=== PATIENT | female | born 1990 | race Caucasian/White ===

== ENCOUNTER → 2023-12-31 10:04 | Outpatient (REF) | payer OTHER, SELFPAY | LOC: HWRAD 10:04 | PROVIDERS: ATTENDING PHYSICIAN Obstetrics & Gynecology Gynecology; FAMILY PHYSICIAN Internal Medicine | DX: N93.0 Postcoital and contact bleeding (principal); R10.2 Pelvic and perineal pain | CPT/HCPCS: 76830; 76856 ==

== ENCOUNTER 2024-07-12 05:05 | Emergency (ER) | payer OTHER, SELFPAY ==
[2024-07-12 05:06] VITALS: BP 130/95
[2024-07-12 05:20] VITALS: BMI 30.9
--- NOTE | 2024-07-12 05:22 | ED.GENMED ---
History of Present Illness
General
Chief Complaint: Abdominal Pain
Source: patient and spouse
Exam Limitations: none
Time Seen by Provider: 07/12/24 05:18
Nursing documentation reviewed up to this point in time: agreed with
History of Present Illness
History of Present Illness:
This is a 34-year-old woman with no significant past medical history, takes no medicines on a daily basis save for vitamins. She presents with nausea, vomiting, diarrhea that began around 7 PM last night. Couple episodes of recurrent vomiting as
well as loose stools. She denies hematemesis, denies hematochezia. Her had similar GI symptoms yesterday.
She complains of generalized aches, myalgias.
She denies risk of .
No recent travel nor recent antibiotic use.
Past History
Past History
ED Past Medical History: None
ED Past Surgical History: Gynecological (Laparoscopic ovarian cyst removal) and Tonsilectomy
Social History
Tobacco: Non-smoker
Alcohol: Occasional
Drug: None
Personal:
Living: with family
Employment: Employed
Family History
Family History: Other (Noncontributory)
Phy Exam
Physical Exam
Physical Exam:
GENERAL: 34-year-old woman appears her stated age, awake and alert, appears in moderate distress, anxious, restless, holding emesis basin at the ready. is accompanying. Vital signs within normal limits. Afebrile.
EYE: pupils equal and reactive. anicteric
NECK: Supple, nontender, no meningismus, no significant adenopathy.
ENT: posterior pharynx is clear, oral mucosa is minimally dry. No rhinorrhea.
CARDIAC: Regular rate and rhythm. no murmur.
LUNGS: Clear breath sounds bilaterally, no acute respiratory distress, no wheezes/rales/rhonchi
ABDOMEN: Soft, nondistended, without focal tenderness, no r/g, no cvat. normoactive BS.
NEUROLOGICAL: Alert and oriented x3, no focal neuro deficits. Gait is steady.
SKIN: Warm and dry, normal color, skin intact. No rash.
MUSCULOSKELETAL: No C/C/E. peripheral pulses are full and equal b/l. No palpable tenderness.
PSYCH: Mildly anxious. Cooperative.
Course
Orders/Labs/Results
Orders:
Orders
07/12/24 05:21
0.9% Sodium Chloride 1000 ml [Nss] 1,000 ml IV BOLUS
Morphine Sulfate 4 mg IV NOW STA
Ondansetron Injectable [Zofran] 4 mg IV NOW STA
Test Result ONCE
07/12/24 05:22
Norovirus by PCR Urgent
[facility] Source: Feces/Stool
Specimen Description:
Stool Culture Urgent
[facility] Source: Feces/Stool
Specimen Description:
07/12/24 05:37
Complete Blood Count/With Diff Urgent
Comprehensive Metabolic Panel Urgent
HCG, Serum Qualitative Screen Urgent
Lipase Urgent
Abnormal Lab Results
07/12/24
05:37
MCH 31.7 H pg
(27.0-31.0)
Abs Immat Gran (auto) 0.1 H 10^3/uL
(0-0.05)
Absolute Neuts (auto) 9.9 H 10^3/uL
(1.4-6.5)
Absolute Lymphs (auto) 0.4 L 10^3/uL
(1.2-3.4)
Immature Gran % 0.6 H %
(0-0.5)
Neutrophils % 93.1 H %
(42.2-75.2)
Lymphocytes % 3.6 L %
(20.5-51.1)
Carbon Dioxide 18 L mmol/L
(22-30)
BUN 18 H mg/dl
(7-17)
Glucose 140 H mg/dl
(70-99)
ALT 44 H U/L
(0-35)
07/12/24 05:37
07/12/24 05:37
Vital Signs
Temp: 98.4 F
Initial and Last Documented VS:
Initial Vital Signs
Pulse Resp BP Pulse Ox
62 22 130/95 100
07/12/24 05:06 07/12/24 05:06 07/12/24 05:06 07/12/24 05:06
Last Documented Vital Signs
Temp Pulse Resp BP Pulse Ox
98.4 F 62 22 130/95 100
07/12/24 05:26 07/12/24 05:06 07/12/24 05:06 07/12/24 05:06 07/12/24 05:22
MDM/Problems Addressed
Differential Diagnosis Includes:
Highly suspect acute gastroenteritis either viral versus foodborne as her had very similar symptoms 24 hours ago.
Other consideration is small bowel obstruction.
Will check labs, initiate IV fluids and give an IV dose of Zofran for nausea, IV morphine for pain.
Will consider imaging depending on laboratory studies and clinical course.
Chronic conditions affecting care: Previous abdomnial surgery
*Pulse Oximetry
Patient hypoxic: no
*Critical Care Note
Total Time (30-74mins, 75-104mins- exclusive of procedures): Not Applicable
Update Note
Update Note:
06:00
Patient resting comfortably with relief of nausea, no further myalgias.
Abdomen is soft without appreciable tenderness.
She has had no return of vomiting nor diarrhea.
Labs are all within normal limits save for very mild metabolic acidosis.
Will continue IV fluids and plan for discharge to home with prescription for Zofran for as needed nausea, Lomotil for as needed diarrhea.
Recommend she limit her diet to clear liquids today, slowly advance to soft bland foods tomorrow as tolerated.
ED Attending Note
-
Portions of this chart may have been created with voice recognition software.� Occasional wrong word or��sound alike� substitutions may have occurred due to the inherent limitations of voice recognition software.
Discharge Plan
Departure
Patient Disposition: Home (Routine Discharge)
Date of Disposition: 07/12/24
Time of Disposition: 06:04
Patient with high blood pressure during this ER visit?: No
Condition: Good
Discharge Problem:
Acute gastroenteritis
Instructions: Viral gastroenteritis in adults, Clear Liquid Diet
Prescriptions:
New
diphenoxylate-atropine [Lomotil] 2.5-0.025 mg tablet
1 tab PO QID PRN (Reason: diarrhea) Qty: 8 0RF
ondansetron 4 mg tablet,disintegrating
4 mg PO QID PRN (Reason: nausea and vomiting) Qty: 20 0RF
No Action
prenat.vits,joe,rvr-wlae-nbqzy [ Vitamin] 1 EACH tablet
1 tab PO DAILY
calcium carbonate [Antacid Extra-Strength] 1 TABLET tablet,chewable
1 tab PO PRN PRN (Reason: reflux)
ibuprofen 600 MG tablet
600 mg PO Q4HPRN PRN (Reason: moderate pain/cramps) 0RF
Referrals:
PRIVATE,PHYSICIAN [Family Provider] - Call in 1-3 days for appt
Interventions
Interventions:
*Risk Screen - Suicide Last Done: 07/12/24 05:06
*General Assessment Last Done: 07/12/24 05:06
*Neglect/Abuse Screening Last Done: 07/12/24 05:06
*ED- Fall Risk Assessment Last Done: 07/12/24 05:06
*ED COVID-19 Vaccine History Last Done: 07/12/24 05:06
NN-Caupkn-Cwsxzfazbn Assessment Last Done: 07/12/24 05:20
Discharge Date and Time
Print Language: CYMRO
[2024-07-12] MEDS: NSS 1000 IV (05:32)
[2024-07-12] MEDS: ZOFRAN 4 MG IV (05:33)
[2024-07-12] MEDS: MORPHINE SULFATE 4 MG IV (05:33)
[2024-07-12 05:47] LABS: % Basophils 0.4 % (0-2); % Immature Granulocytes 0.6 % (0-0.5); % Lymphocytes 3.6 % (20.5-51.1); % Monocytes 2.3 % (1.7-9.3); % Neutrophils 93.1 % (42.2-75.2); Absolute Immature Granulocytes 0.1 10^3/uL (0-0.05); Absolute Lymphocytes 0.4 10^3/uL (1.2-3.4); Absolute Monocytes 0.2 10^3/uL (0.1-0.6); Absolute Neutrophils 9.9 10^3/uL (1.4-6.5); Hematocrit 40.2 % (37.0-47.0); Hemoglobin 14.7 g/dL (12.0-16.0); Mean Corp Hgb Conc. 36.6 g/dL (33.0-37.0); Mean Corpuscular Hgb 31.7 pg (27.0-31.0); Mean Corpuscular Volume 86.6 fL (81.0-99.0); Nucleated Red Blood Cells % 0 %; Platelet Count 226 10^3/uL (130-400); Red Blood Cell Count 4.64 10^6/uL (4.20-5.40); White Blood Cell Count 10.6 10^3/uL (4.8-10.8)
[2024-07-12 05:55] LABS: HCG, Serum Qualitative Screen Negative
[2024-07-12 06:00] VITALS: BP 110/71
[2024-07-12 06:00] LABS: ALT (SGPT) 44 U/L (0-35); AST (SGOT) 35 U/L (14-36); Albumin 4.9 g/dl (3.5-5.0); Alkaline Phosphatase 72 U/L (38-126); Blood Urea Nitrogen 18 mg/dl (7-17); Carbon Dioxide 18 mmol/L (22-30); Chloride 106 mmol/L (98-107); Estimated Creatinine Clearance 103 ml/min; Glucose 140 mg/dl (70-99); Lipase 51 U/L (23-300); Potassium 4.4 mmol/L (3.5-5.1); Sodium 141 mmol/L (135-145); Total Protein 7.9 g/dl (6.3-8.2); eGFR > 60.00
== END 2024-07-12 07:01 | disposition home or self-care (01) ==
LOC: EMR 05:05
PROVIDERS: EMERGENCY PHYSICIAN Emergency Medicine
DX: K52.9 Noninfective gastroenteritis and colitis, unspecified (principal)
CPT/HCPCS: 96374; 96375; 99284; 80053; 83690; 84703; 85025

== ENCOUNTER → 2025-01-21 08:19 | Outpatient (REF) | payer OTHER, SELFPAY | LOC: HWRAD 08:19 | PROVIDERS: ATTENDING PHYSICIAN Obstetrics & Gynecology Gynecology; FAMILY PHYSICIAN Internal Medicine | DX: N93.9 Abnormal uterine and vaginal bleeding, unspecified (principal) | CPT/HCPCS: 76830; 76856 ==